=== PATIENT | male | born 1975 | race Caucasian/White ===

== ENCOUNTER 2018-02-19 14:28 | Emergency (ER) | END 2018-02-19 17:02 | disposition home or self-care (01) ==

== ENCOUNTER 2018-04-29 20:39 | Emergency (ER) | END 2018-04-29 23:31 | disposition home or self-care (01) ==

== ENCOUNTER 2018-05-03 11:08 | Emergency (ER) | END 2018-05-03 13:45 | disposition home or self-care (01) ==

== ENCOUNTER 2019-01-22 12:54 | Emergency (ER) | payer BC, MEDICAID ==
[~2019-01-22] VITALS: Ht 172.7 cm; Wt 71.4 kg
[~2019-01-22 12:54] MED LIST: ACET325T33 PO; IBUP-1561 PO; LORA10CA PO; MECL12.574 PO; ONDA4TAB14 PO
[2019-01-22 13:20] VITALS: Ht 172.7 cm; Wt 71.4 kg
--- NOTE | 2019-01-22 14:25 | ERD ---
ER Documentation Chief Complaint Chief Complaint Pt with c/o weakness, dizziness since last night. HPI 43-year-old male ambulatory to the ED complaining of feeling weak and lightheaded upon awakening this morning. He also noticed that the bed was wet when he woke up and he injured his tongue. Denies any headache, visual changes, focal weakness or numbness. Denies chest pain, palpitations or shortness of breath. No abdominal pain, nausea, vomiting, diarrhea or constipation. No URI symptoms or cough. Denies neck or back pain. No fevers or chills. ROS All systems reviewed and are negative except as per history of present illness. Medications Home Meds Reported Medications Cholecalciferol (Vitamin D3) 5,000 Unit Tablet, 5000 UNIT PO DAILY, TAB 01/22/19 Benazepril Hcl* (Benazepril Hcl*) 20 Mg Tablet, 20 MG PO DAILY, #30 TAB 01/22/19 Discontinued Scripts Ibuprofen* (Motrin*) 400 Mg Tab, 400 MG PO Q6, #30 TAB Prov:YOVANI CURRIE PA-C 05/03/18 Ondansetron (Ondansetron Odt) 4 Mg Tab.rapdis, 4 MG PO Q6H PRN for NAUSEA AND/OR VOMITING, #10 TAB Prov:YOVANI CURRIE PA-C 05/03/18 Meclizine Hcl* (Antivert*) 12.5 Mg Tab, 12.5 MG PO Q6H PRN for DIZZINESS, #20 TAB Prov:YOVANI CURRIE PA-C 05/03/18 Acetaminophen* (Tylenol*) 325 Mg Tablet, 2 TAB PO Q6 PRN for PAIN AND OR ELEVATED TEMP, #30 TAB Prov:SETH LARSEN PA-C 04/29/18 Loratadine* (Claritin*) 10 Mg Capsule, 10 MG PO DAILY, #30 CAP Prov:SETH LARSEN PA-C 04/29/18 Ondansetron (Ondansetron Odt) 4 Mg Tab.rapdis, 4 MG PO Q6H PRN for NAUSEA AND/OR VOMITING, #10 TAB Prov:ERASMO BEASLEY PA-C 02/19/18 Allergies Allergies: Coded Allergies: No Known Allergy (Unverified , 01/22/19) PMhx/Soc Reviewed in chart. As per HPI. Medical and Surgical Hx: pt denies Medical Hx, pt denies Surgical Hx History of Surgery: No Anesthesia Reaction: No Hx Neurological Disorder: No Hx Respiratory Disorders: No Hx Cardiac Disorders: No Hx Psychiatric Problems: No Hx Miscellaneous Medical Probl: Yes (Dizziness) Hx Alcohol Use: No Hx Substance Use: No Hx Tobacco Use: No Smoking Status: Never smoker FmHx No seizures, stroke or cancer Physical Exam Vitals Vital Signs Date Temp Pulse Resp B/P (MAP) Pulse Ox O2 O2 Flow FiO2 Time Delivery Rate 01/22/19 98.9 80 16 102/71 99 Room Air 17:37 (81) 01/22/19 99.3 97 14 125/71 99 13:20 (89) Physical Exam Const: Alert, no acute distress Head: Atraumatic Eyes: Pupils equal reactive light, extraocular movements are intact. No nystagmus. Normal Conjunctiva ENT: Normal External Ears, Nose and Mouth. Left lateral tongue abrasion but no active bleeding. Neck: Full range of motion. Carotids 2+ bilaterally without bruits. No lymphadenopathy. No meningismus. Resp: Clear to auscultation bilaterally Cardio: Regular rate and rhythm, no murmurs, gallops or rubs. Abd: Soft, non tender, non distended. No rebound or guarding. No masses or abnormal pulsations. Normal bowel sounds Skin: No petechiae or rashes Back: No midline or flank tenderness Ext: No cyanosis, or edema Neur: Awake and alert. Cranials 2 through 12 grossly intact. Motor and sensory equal bilaterally. DTRs are symmetrical. Normal gait. No dysdiadochokinesis. Psych: Normal Mood and Affect Result Diagram: 01/22/19 1425 01/22/19 1425 Results 24 hrs Laboratory Tests Test 01/22/19 14:25 White Blood Count 10.8 10^3/ul Red Blood Count 4.56 10^6/ul Hemoglobin 14.2 g/dl Hematocrit 40.5 % Mean Corpuscular Volume 88.8 fl Mean Corpuscular Hemoglobin 31.1 pg Mean Corpuscular Hemoglobin Concent 35.1 g/dl Red Cell Distribution Width 12.6 % Platelet Count 233 10^3/UL Mean Platelet Volume 9.8 fl Immature Granulocytes % 0.300 % Neutrophils % 82.0 % Lymphocytes % 11.2 % Monocytes % 6.0 % Eosinophils % 0.1 % Basophils % 0.4 % Nucleated Red Blood Cells % 0.0 /100WBC Immature Granulocytes # 0.030 10^3/ul Neutrophils # 8.8 10^3/ul Lymphocytes # 1.2 10^3/ul Monocytes # 0.6 10^3/ul Eosinophils # 0.0 10^3/ul Basophils # 0.0 10^3/ul Nucleated Red Blood Cells # 0.0 10^3/ul Sodium Level 140 mmol/L Potassium Level 3.9 mmol/L Chloride Level 104 mmol/L Carbon Dioxide Level 24 mmol/L Anion Gap 12 Blood Urea Nitrogen 10 mg/dl Creatinine 0.69 mg/dl Est Glomerular Filtrat Rate mL/min > 60 mL/min Glucose Level 103 mg/dl Calcium Level 9.3 mg/dl Total Bilirubin 0.9 mg/dl Direct Bilirubin 0.00 mg/dl Indirect Bilirubin 0.9 mg/dl Aspartate Amino Transf (AST/SGOT) 39 IU/L Alanine Aminotransferase (ALT/SGPT) 71 IU/L Alkaline Phosphatase 113 IU/L Total Protein 8.4 g/dl Albumin 4.8 g/dl Globulin 3.60 g/dl Albumin/Globulin Ratio 1.33 Procedures/MDM DOCUMENTS REVIEWED: ED nurse, 3 ED visits over the last year for dizziness. EKG: Time: 1533. Sinus rhythm. Ventricular rate 73, normal TN and QRS intervals. No acute ST segment elevation or depression. No axis deviation or ectopy. My Interpretation: Normal EKG IMAGING: Chest AP portable. Cardiac silhouette is normal. The costophrenic angles are clear. No effusions or infiltrates. No abnormalities of the bony thorax. My interpretation. PROCEDURE: CT Brain without contrast. CLINICAL INDICATION: Seizure TECHNIQUE: A CT of the brain was performed on a multidetector CT scanner utilizing axial imaging from the skull base through the vertex without IV contrast. Multiplanar reformatted images were made. Images were reviewed on a PACS workstation. The CTDIvol is 39 mGy and the DLP is 634 mGycm. DICOM images are available. One or more of the following dose reduction techniques were utilized: 1.) Automated exposure control 2.) Adjustment of the mA +/- kV according to patient's size 3.) Use of iterative reconstruction technique. COMPARISON: None FINDINGS: There is no intracranial hemorrhage, mass effect, or midline shift. No extra- axial fluid collection is seen. The ventricles and sulci are normal in size . Noted is cavum septum pellucidum.. The density of the brain is normal, and the juares white matter differentiation appears well-preserved. The visualized paranasal sinuses and osseous structures are grossly unremarkable. IMPRESSION: 1. No evidence of acute intracranial pathology. 2. The brain is normal in appearance. .Amadou Dominguez MD, MD Date Time Electronically viewed and signed by .Amadou Dominguez MD, MD on 01/22/2019 15:08 .A/ [employer]-year-old male ambulatory to the ED complaining of feeling weak and lightheaded upon awakening this morning. CBC to evaluate for leukocytosis, anemia and thrombocytopenia is unremarkable. Chemistry is negative for electrolyte abnormalities, renal insufficiency or hyperglycemia. L FTs are unremarkable for hyperbilirubinemia or transaminitis. EKG negative for ischemia or dysrhythmia. CT of the brain to evaluate for infarct, bleed, mass and hydrocephalus is unremarkable. Chest x-ray is negative for CHF or pneumonia. Patient presents with signs and symptoms consistent with seizure occurred while he was sleeping. As this is likely a first seizure anticonvulsants will not be initiated. Patient also has had almost a 1 year history of progressive, generalized weakness of uncertain etiology each which will need further work-up. Stable for discharge with precautionary instructions and outpatient follow-up as counseled. Counseled patient regarding diagnostic workup, diagnosis and need for followup. Understands that a report will be filed with [facility] and he is not to drive, swim, operate machinery or engage in any hazardous activity should seizure occur. Acknowledges understanding of the need for urgent follow-up or return to ED if symptoms recur or any other concerns. Departure Diagnosis: Primary Impression: Weakness Additional Impression: New onset seizure Condition: Stable ELEANOR WADSWORTH MD Jan 22, 2019 14:24
[2019-01-22] MEDS ORDERED: BENA20TA4 PO (16:25)
[2019-01-22] MEDS ORDERED: CHOL500010 PO (16:26)
[2019-01-22 17:37] VITALS: BP 102/71; PULSE 80; RESP 16
== END 2019-01-22 17:40 | disposition home or self-care (01) ==
LOC: FTE 12:54 → E/R 17:40
DX: R53.1 Weakness (principal); R56.9 Unspecified convulsions; R40.2142 Coma scale, eyes open, spontaneous, at arrival to emergency department; R40.2252 Coma scale, best verbal response, oriented, at arrival to emergency department; R40.2362 Coma scale, best motor response, obeys commands, at arrival to emergency department
CPT/HCPCS: 36415; 70450; 71045; 80053; 85025; 93005